=== PATIENT | female | born 1975 | race Caucasian/White ===

== ENCOUNTER 2016-05-09 07:30 | Inpatient (IN) | payer MEDICAID, OTHER ==
[2016-05-09] MEDS ORDERED: LIDOCAINE 2% INJ 20 MG/ML (20 ML MDV) ONE (14:34)
[2016-05-09] MEDS ORDERED: HEPARIN SODIUM 1,000 UNIT/ML VIAL ONE (14:35)
[2016-05-09] MEDS ORDERED: SODIUM CHLORIDE 0.9% (PF) 10 ML VIAL ONE (14:36)
[2016-05-09] MEDS ORDERED: VERAPAMIL 2.5 MG/ML 2 ML AMP ONE (14:36)
[2016-05-09] MEDS ORDERED: MIDAZOLAM 2 MG/2 ML VIAL ONE (14:40)
[2016-05-09 14:45] VITALS: RESP 18
[2016-05-09] MEDS: MIDAZOLAM 2 MG/2 ML VIAL IVP ONE ×2 (15:00→15:06)
[2016-05-09] MEDS ORDERED: LIDOCAINE 2% INJ 20 MG/ML SQ ONE (15:06)
[2016-05-09] MEDS ORDERED: fentaNYL (PF) 50 MCG/ML 2 ML AMP ONE (15:10)
[2016-05-09] MEDS ORDERED: VERAPAMIL SYRINGE (5 MG/10 ML) INTRAARTER ONE (15:10)
[2016-05-09] MEDS ORDERED: fentaNYL (PF) 50 MCG/ML 2 ML AMP IV ONE (15:11)
[2016-05-09] MEDS ORDERED: ONDANSETRON 4 MG/2 ML VIAL ONE (15:20)
[2016-05-09] MEDS ORDERED: IOHEXOL 350 MG/ML 100 ML BOTTLE INJ ONE (15:20)
[2016-05-09] MEDS ORDERED: ONDANSETRON 4 MG/2 ML VIAL IVP ONE (15:22)
[2016-05-09] MEDS ORDERED: SODIUM CHLORIDE 0.9% 500 ML IV ONE (15:23)
[2016-05-09] MEDS ORDERED: RX INFO: IV CONTRAST WAS GIVEN 1 EACH MISC MISCELLANE PRN (15:24)
[2016-05-09] MEDS ORDERED: SODIUM CHLORIDE 0.9% 1,000 ML IV SCH (15:30)
[2016-05-09] MEDS ORDERED: HYDROmorphone 1 MG/ML 1 ML SYRINGE IVP STA (15:45)
--- NOTE | 2016-05-09 19:18 | CC ---
DATE OF SERVICE: 05/09/2016. PERFORMING PHYSICIAN: lE Hylton M.D., surg nurse. PROCEDURE PERFORMED: 1. Selective right and left coronary angiogram. 2. Left heart catheterization. 3. Left ventriculography. 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 Approach: Right common femoral artery. COMPLICATIONS: None. Level of sedation: Moderate with sedation length of half hour. PROCEDURE DESCRIPTION: After obtaining informed consent, the patient was brought to the cardiac company laborer, the right common femoral artery was cannulated using micropuncture technique. Micropuncture wire passed easily and then I placed a 6 Cambodian sheath in the right common femoral artery. Subsequently I did selective right and left coronary angiogram using JR4 and JL4 catheters. Then I did left heart catheterization and LV gram using a 6 Cambodian pigtail catheter. The procedure was completed without any complication. SELECTIVE CORONARY ANGIOGRAM: 1. The right coronary artery is a large-caliber vessel, it is a dominant vessel, and is angiographically normal. It bifurcates into PDA and PLV branches; both are angiographically normal. 2. The left main is angiographically normal and bifurcates into the left circumflex and left anterior descending artery. 3. The left circumflex is a large-caliber vessel and a nondominant vessel. The proximal circumflex is angiographically normal and gives rise to the first and second obtuse marginal branches; both are angiographically normal and the left circumflex is normal. The left circumflex distally gives rises the third OM branch, which seems to be normal and the circ continues as a small to medium caliber vessel in the AV groove. 4. Left anterior descending coronary artery: The proximal LAD is angiographically normally. The mid LAD is normal and gives rise into first and second diagonal branches; both are angiographically normal and the LAD distally is angiographically normal. HEMODYNAMICS: The left ventricular end-diastolic pressure was 16 mmHg. No gradient was identified across the aortic valve. Left ventriculography was performed in the MEI projection and using a power injection, left ventricular function is normal. CONCLUSION: 1. Normal coronary angiogram. 2. Dominant right coronary system. 3. Normal left ventricular systolic function.
--- NOTE | 2016-05-09 19:20 | LTR ---
May 09, 2016 RE: Lex Grace Dear Dr. Fortune: Ms. Grace Burnett underwent a heart catheterization which showed normal coronary angiogram. As you remember, she is a pleasant 41-year-old female patient who presented recently to [facility] with chest discomfort and underwent a stress test came to be abnormal showing ischemia. I want to thank you for allowing me to participate in her care. Please call if any question or concerns. Sincerely, ANDRE CANALES MD
[2016-05-09] MEDS ORDERED: GABAPENTIN 400 MG CAP PO SCH (22:00)
[2016-05-09] MEDS ORDERED: TAPENTADOL HCL 150 MG PO SCH (22:00)
[2016-05-09] MEDS ORDERED: MONTELUKAST 10 MG TAB PO SCH (22:00)
[2016-05-09] MEDS ORDERED: traZODone HCL 100 MG TAB PO PRN (22:00)
[2016-05-09] MEDS ORDERED: SUMAtriptan SUCCINATE 50 MG TAB PO SCH (22:00)
[2016-05-09] MEDS ORDERED: IBUPROFEN 600 MG TAB PO PRN (22:00)
[2016-05-09] MEDS ORDERED: diphenhydrAMINE 25 MG CAP PO SCH (22:00)
[2016-05-09] MEDS ORDERED: SUMAtriptan SUCCINATE 50 MG TAB PO PRN (22:23)
[2016-05-09] MEDS: VENLAFAXINE HCL ER 150 MG CAP PO SCH (23:12)
[2016-05-09] MEDS: VENLAFAXINE HCL ER 75 MG CAP PO SCH (23:12)
[2016-05-09] MEDS: TOPIRAMATE 25 MG TAB PO SCH (23:12)
[2016-05-10] MEDS ORDERED: LEVOTHYROXINE 88 MCG TAB PO SCH (06:30)
[2016-05-10] MEDS: VENLAFAXINE HCL ER 150 MG CAP PO SCH (08:47)
[2016-05-10] MEDS: GABAPENTIN 300 MG CAP PO SCH ×2 (08:47→11:48)
[2016-05-10] MEDS: VENLAFAXINE HCL ER 75 MG CAP PO SCH (08:47)
[2016-05-10] MEDS: TOPIRAMATE 25 MG TAB PO SCH ×2 (08:47→17:08)
[2016-05-10] MEDS ORDERED: LORATADINE 10 MG TAB PO SCH (09:00)
[2016-05-10] MEDS ORDERED: FLUTICASONE 50MCG/SPRAY NASAL 16GM EA NOSTRIL SCH (09:00)
[2016-05-10] MEDS ORDERED: ESTROGEN ESTER PO SCH (09:00)
[2016-05-10] MEDS ORDERED: [UNRECOGNIZED DRUG - OTHER] PO SCH (09:00)
[2016-05-10] MEDS ORDERED: TESTOSTERONE PO SCH (09:00)
[2016-05-10 09:24] VITALS: PULSE 68
[2016-05-10 13:46] VITALS: BP 117/80; TEMP 97.3
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
== END 2016-05-10 18:28 | disposition home or self-care (01) | DRG 287 ==
LOC: 6SEL 13:41
PROVIDERS: ADMIT Internal Medicine; ATTEND Internal Medicine
PROC: B2111ZZ Fluoroscopy of Multiple Coronary Arteries using Low Osmolar Contrast (ICD-10-PCS; 2016-05-09)
PROC: B2151ZZ Fluoroscopy of Left Heart using Low Osmolar Contrast (ICD-10-PCS; 2016-05-09)
PROC: 4A023N7 Measurement of Cardiac Sampling and Pressure, Left Heart, Percutaneous Approach (ICD-10-PCS; principal; 2016-05-09 14:51)
DX: R07.89 Other chest pain (principal); Z68.42 Body mass index [BMI] 45.0-49.9, adult; E66.9 Obesity, unspecified; G62.9 Polyneuropathy, unspecified; I49.3 Ventricular premature depolarization; F41.0 Panic disorder [episodic paroxysmal anxiety]; F32.9 Major depressive disorder, single episode, unspecified; E07.9 Disorder of thyroid, unspecified; J45.909 Unspecified asthma, uncomplicated; M19.90 Unspecified osteoarthritis, unspecified site; Z79.891 Long term (current) use of opiate analgesic; Z79.899 Other long term (current) drug therapy; Z82.49 Family history of ischemic heart disease and other diseases of the circulatory system
CPT/HCPCS: 93458

== ENCOUNTER 2016-06-15 02:14 | Emergency (ER) | payer MEDICAID ==
[2016-06-15] MEDS ORDERED: SODIUM CHLORIDE 0.9% 1,000 ML BAG ONE (04:05)
[2016-06-15] MEDS ORDERED: METOCLOPRAMIDE 5 MG/ML 2 ML VIAL ONE (04:05)
== END 2016-06-15 07:14 | disposition home or self-care (01) ==
LOC: EC 02:14
DX: F10.120 Alcohol abuse with intoxication, uncomplicated (principal); Z88.0 Allergy status to penicillin; Z88.1 Allergy status to other antibiotic agents; Z88.2 Allergy status to sulfonamides; Z88.8 Allergy status to other drugs, medicaments and biological substances; Z91.040 Latex allergy status
CPT/HCPCS: 82075; 96360; 99284